=== PATIENT | male | born 1960 | race Caucasian/White ===

== ENCOUNTER 2023-09-08 09:53 | Emergency (ER) | payer OTHER, MEDICARE ==
[2023-09-08 10:13] LABS: BASOPHILS ABSOLUTE AUTO 0.03 K/uL (0.02-0.10); BASOPHILS PERCENT AUTO 0.4 % (0.0-0.5); EOSINOPHILS ABSOLUTE AUTO 0.22 K/uL (0.04-0.40); EOSINOPHILS PERCENT AUTO 3.3 % (1.0-5.0); HEMATOCRIT 51.7 % (40.0-54.0); HEMOGLOBIN 17.4 g/dL (13.0-18.0); LYMPHOCYTES ABSOLUTE AUTO 1.66 K/uL (1.50-4.00); LYMPHOCYTES PERCENT AUTO 24.8 % (20.0-40.0); MEAN CORPUSCULAR HEMOGLOBIN 31.6 pg (27.0-32.0); MEAN CORPUSCULAR HGB CONC 33.7 g/dL (31.0-35.0); MEAN CORPUSCULAR VOLUME 94 fL (76-96); MEAN PLATELET VOLUME 9.8 fL (6.0-10.0); MONOCYTES ABSOLUTE AUTO 0.63 K/uL (0.20-0.80); MONOCYTES PERCENT AUTO 9.4 % (3.0-10.0); NEUTROPHILS ABSOLUTE AUTO 4.15 K/uL (2.00-7.50); NEUTROPHILS PERCENT AUTO 62.1 % (45.0-70.0); PLATELET COUNT,PLT 188 K/uL (150-400); RED CELL DISTRIBUTION WIDTH 13.3 % (11.0-16.0); WHITE BLOOD CELL COUNT,WBC 6.7 K/uL (4.0-11.0)
[2023-09-08 10:32] LABS: INR 1.1 (1.0-3.5)
[2023-09-08 10:36] LABS: A/G RATIO 0.9 (0.8-2.0); ALBUMIN 3.5 g/dL (3.4-5.0); ANION GAP 11.7 mmol/L (5.0-15.0); BILIRUBIN TOTAL 1.3 mg/dL (0.0-1.0); BUN/CREATININE RATIO 21.8 (6-25); CALCIUM 8.5 mg/dL (8.5-10.1); CARBON DIOXIDE,CO2 27.8 mmol/L (21.0-32.0); CREATININE 1.01 mg/dL (0.70-1.30); EST CRCL DRUG DOSING (CG) 91.91 mL/min; POTASSIUM,K 4.5 mmol/L (3.5-5.1); PROTEIN TOTAL,TP 7.4 g/dL (6.4-8.2); TROPONIN I HIGH SENSITIVITY 6.2 pg/ml (<=60.4)
[2023-09-08 10:37] LABS: PROTHROMBIN TIME 11.9 sec (9.0-11.5)
[2023-09-08 10:48] LABS: PTT,PARTIAL THROMBOPLSTIN TIME 26.1 SECONDS (24.4-33.2)
[2023-09-08] MEDS: Acetaminophen 500 MG Tab PO ONE (11:12)
[2023-09-08] MEDS ORDERED: Tranexamic Acid 1,000 MG/10 ML Vial IV ONE (14:53)
[2023-09-08] MEDS ORDERED: Tranexamic Acid 1,000 MG/10 ML Vial ONE (14:58)
== END 2023-09-08 14:06 | disposition home or self-care (01) ==
LOC: LB.ED 09:53
DX: R04.0 Epistaxis (principal)
CPT/HCPCS: 36415; 80053; 84484; 85025; 85610; 85730; 93005; 99285; A0425; A0428; A9270

== ENCOUNTER 2023-09-08 14:52 | Emergency (ER) | payer OTHER, MEDICARE ==
[~2023-09-08 14:52] MED LIST: Acetaminophen 500 MG Tab ONE
[2023-09-08] MEDS: Tranexamic Acid 1,000 MG/10 ML Vial IV ONE (15:02)
[2023-09-08] MEDS: Oxymetazoline 0.05% Nasal Spray 30 ML Bottle NAS ONE (15:25)
== END 2023-09-08 16:31 | disposition home or self-care (01) ==
LOC: LB.ED 14:52
DX: R04.0 Epistaxis (principal); J44.9 Chronic obstructive pulmonary disease, unspecified; Z79.899 Other long term (current) drug therapy
CPT/HCPCS: 96374; 99283-25